=== PATIENT | male | born 1995 | race African-American/Black ===

== ENCOUNTER 2018-05-25 13:11 | Emergency (ER) | payer SELFPAY ==
--- NOTE | 2018-05-25 13:52 | RAD ---
RIGHT FOOT THREE VIEWS: History: Injury. Right foot pain in the fifth metatarsal. FINDINGS/IMPRESSION: No acute fracture or dislocation is seen. POS: [facility]
== END 2018-05-25 14:00 | disposition home or self-care (01) ==
LOC: NAV ERS 13:11
DX: S93.601A Unspecified sprain of right foot, initial encounter (principal); F17.210 Nicotine dependence, cigarettes, uncomplicated; X50.1XXA Overexertion from prolonged static or awkward postures, initial encounter; Y93.67 Activity, basketball

== ENCOUNTER 2018-12-06 21:10 | Emergency (ER) | payer SELFPAY ==
[2018-12-06] MEDS ORDERED: Lidocaine 1% (PF) 30 ML VIAL ONE (21:46)
[2018-12-06] MEDS ORDERED: Clindamycin 300 MG/2 ML VIAL ONE (21:51)
[2018-12-06] MEDS ORDERED: HYDROcodone/Acetaminophen 10/325 mg Tablet ONE (22:03)
== END 2018-12-06 23:50 | disposition home or self-care (01) ==
LOC: NAV ERS 21:10
DX: L02.511 Cutaneous abscess of right hand (principal); F17.210 Nicotine dependence, cigarettes, uncomplicated
CPT/HCPCS: 26011; 87070; 87077; 87205; 96365; J2001; J3490

== ENCOUNTER 2018-12-09 16:27 | Emergency (ER) | payer SELFPAY | END 2018-12-09 17:05 | disposition home or self-care (01) | LOC: NAV ERS 16:27 | DX: S61.210D Laceration without foreign body of right index finger without damage to nail, subsequent encounter (principal); I10 Essential (primary) hypertension; F17.210 Nicotine dependence, cigarettes, uncomplicated | CPT/HCPCS: 99281 ==